=== PATIENT | male | born 1955 | race Caucasian/White ===

== ENCOUNTER 2022-03-15 14:46 | Outpatient (CLI) | payer OTHER, SELFPAY ==
[2022-03-15 09:34] LABS: Albumin* 4.3 g/dL (3.3-5.0); Chloride* 103 mmol/L (96-114)
[2022-03-15 09:35] LABS: Potassium* 3.7 mmol/L (3.6-5.1); Sodium* 139 mmol/L (135-149)
[2022-03-15 09:37] LABS: Alanine Aminotransferase* 41 U/L (4-50); Alkaline Phosphatase* 50 U/L (40-150); Aspartate Amino Transferase* 43 U/L (12-35); Bilirubin Total* 1.4 mg/dL (0.1-1.5); Blood Urea Nitrogen* 21 mg/dL (7-30); Carbon Dioxide* 27 mmol/L (20-32); Cholesterol* 167 mg/dL (90-199); Estimated Glomerular Filt Rate 82 ml/min; Glucose* 110 mg/dL (60-115); Total Protein* 6.6 g/dL (6.0-8.3); Triglycerides* 111 mg/dL (40-149)
[2022-03-15 09:38] LABS: HDL Cholesterol* 48 mg/dL (>=40); LDL Cholesterol Calculated 97 mg/dL (<100)
[2022-03-21 12:41] LABS: PSA Screen* 1.66 ng/mL (0.10-4.00)
== END 2022-03-15 14:47 | disposition home or self-care (01) ==
PROVIDERS: PCP Family Medicine; Visit Provider Family Medicine
DX: Z00.00 Encounter for general adult medical examination without abnormal findings (principal); E78.5 Hyperlipidemia, unspecified; E03.9 Hypothyroidism, unspecified; Z12.5 Encounter for screening for malignant neoplasm of prostate
CPT/HCPCS: 80053; 80061; 84153; 84443

== ENCOUNTER 2022-06-20 16:08 | Outpatient (CLI) | payer OTHER, SELFPAY ==
[2022-06-20 09:10] LABS: Albumin* 4.4 g/dL (3.3-5.0)
[2022-06-20 09:13] LABS: Aspartate Amino Transferase* 37 U/L (12-35); Bilirubin Direct* 0.1 mg/dL (0.0-0.5); Bilirubin Total* 1.1 mg/dL (0.1-1.5); Cholesterol* 126 mg/dL (90-199); HDL Cholesterol* 45 mg/dL (>=40); LDL Cholesterol Calculated 62 mg/dL (<100); Total Protein* 6.4 g/dL (6.0-8.3); Triglycerides* 94 mg/dL (40-149)
[2022-06-20 09:14] LABS: Alkaline Phosphatase* 45 U/L (40-150)
[2022-06-20 09:15] LABS: Alanine Aminotransferase* 40 U/L (4-50)
== END 2022-06-20 16:09 | disposition home or self-care (01) ==
PROVIDERS: PCP Family Medicine; Visit Provider Family Medicine
DX: E78.00 Pure hypercholesterolemia, unspecified (principal)
CPT/HCPCS: 80061; 80076

== ENCOUNTER 2022-07-13 14:07 | Outpatient (CLI) | payer OTHER, SELFPAY ==
[2022-07-13 22:17] LABS: Chloride* 103 mmol/L (96-114)
[2022-07-13 22:18] LABS: Potassium* 4.2 mmol/L (3.6-5.1); Sodium* 139 mmol/L (135-149)
[2022-07-13 22:20] LABS: Estimated Glomerular Filt Rate 82 ml/min
[2022-07-13 22:21] LABS: Blood Urea Nitrogen* 18 mg/dL (7-30); Calcium* 9.3 mg/dL (8.4-10.6); Carbon Dioxide* 27 mmol/L (20-32); Glucose* 98 mg/dL (60-115)
[2022-07-13 22:31] LABS: Vitamin D 25 Hydroxy* 39 ng/mL (30-80)
[2022-07-13 23:04] LABS: Vitamin B12* 302 pg/mL (243-894)
[2022-07-16 04:58] LABS: Folate, Serum 13.6 ng/mL (>=5.9)
== END 2022-07-13 14:08 | disposition home or self-care (01) ==
PROVIDERS: PCP Family Medicine; Visit Provider Family Medicine
DX: Z00.00 Encounter for general adult medical examination without abnormal findings (principal); E03.9 Hypothyroidism, unspecified; E78.00 Pure hypercholesterolemia, unspecified; I10 Essential (primary) hypertension; G62.9 Polyneuropathy, unspecified; M10.9 Gout, unspecified
CPT/HCPCS: 80048; 82306; 82607; 82746; 84443

== ENCOUNTER 2022-07-24 07:07 | Outpatient (CLI) | payer OTHER, SELFPAY ==
--- NOTE | 2022-07-24 08:00 | CRLHL7_ITS ---
For Patients: As a result of the Century Cures Act, medical imaging exams and procedure reports are released immediately into your electronic medical record. You may view this report before your referring provider. If you have questions, please contact your health care provider. Indication: Renal mass follow-up Technique: Postcontrast CT abdomen and pelvis. 99 cc Isovue 370 intravenous contrast. Please note that all CT scans at this facility use dose modulation, iterative reconstruction, and/or weight-based dosing when appropriate to reduce radiation dose to as low as reasonably achievable. Comparison: 10/06/2021 Findings: Lung bases are clear. Minimal atelectasis within the lingula inferiorly. No intrahepatic mass. Fatty infiltration of the liver. The spleen is normal. Normal gallbladder. No calcified gallstones. No biliary obstruction. The pancreas is within normal limits. Normal adrenal glands. Subcentimeter cyst at the posterior aspect of the left kidney superior pole. Subcentimeter cyst at the anterior left kidney upper pole. 15 millimeter exophytic low-density structure arising from the lower pole of the left kidney. Nonobstructing stone within the right kidney is unchanged measuring 3 millimeters. No hydronephrosis. Few scattered subcentimeter mesenteric lymph nodes are present, unchanged, representing mild incidental mesenteric panniculitis. Chronic sigmoid diverticulosis. No acute diverticulitis. Prostate calcifications are present. No bowel obstruction or free air. No free fluid. No abscess. The appendix and terminal ileum are normal. Postop changes of right inguinal hernia repair. No recurrent hernia. Degenerative facet arthropathy L4-5 with grade 1 degenerative spondylolisthesis of L4 on L5. Impression: Slight increased size of the exophytic low-density structure arising from the posterior aspect of the left kidney lower pole, now measuring 1.5 cm. Although this likely represents a normal Bosniak 2 cyst, further evaluation with MRI is suggested. Stable nonobstructing stone right kidney measuring 3 millimeters. Sub centimeters simple cysts elsewhere within the kidneys. Severe chronic sigmoid diverticulosis. Please note that all CT scans at this facility use dose modulation, iterative reconstruction, and/or weight-based dosing when appropriate to reduce radiation dose to as low as reasonably achievable. Dictated by Royce Frazier MD @ 07/24/2022 10:11:40 AM (Electronically Signed)
== END 2022-07-24 07:08 | disposition home or self-care (01) ==
LOC: CT 07:08
PROVIDERS: PCP Family Medicine; Visit Provider Family Medicine
DX: N28.89 Other specified disorders of kidney and ureter (principal); N28.1 Cyst of kidney, acquired; N20.0 Calculus of kidney; K57.30 Diverticulosis of large intestine without perforation or abscess without bleeding
CPT/HCPCS: 74177; Q9967

== ENCOUNTER 2022-07-28 07:30 | Outpatient (RCR) | payer OTHER, SELFPAY ==
--- NOTE | 2022-05-09 18:08 | OT.OPOE ---
OT Outpatient Ortho Eval OT Outpatient Ortho Eval Start: 05/09/22 17:49 Freq: Status: Active Protocol: Document 05/09/22 17:49 AMB (Rec: 05/09/22 18:04 AMB [id number]) E-signed By Zulma Lester, OTR/L, CLT, PERFORMANCE IMPROVEMENT SPECIALIST OT OP Ortho Eval Details Type Type Eval Insurance Information Insurance Information Comments [employer] Outpatient History/Precautions Current Condition/Medical Diagnosis Referring Provider Dr Alonso Treatment Diagnosis RUE medial epicondylitis Date of Onset Chronic Medical Conditions HTN,Hepatitis Other Conditions High cholesterol, gout, thyroid Medical/Functional History Medical History Reviewed Yes Prior Level of Function/Mobility Full, pain-free use of the RUE Social History Employment Status Retired Fitness Stays active, plays [employer] Oriented Mental Status No Concerns Ortho Subjective Subjective Subjective Pt is a very pleasant male presenting to OT with complaints of RUE medial elbow pain which has been going on for at least 3 months. Pt states he recalls that it started hurting one day after [employer], not sure if this had anything to do with it as he does not remember specific trauma. Pt was receiving PT for another condition at that time, PT gave him some stretches and UN glide and wrist strengthening, pt states he was faithful with these but did not feel they helped him. Pt states he has a hard time straightening his elbow in the morning as it is very stiff, difficult to lift suitcases and twist off lids. Pt does a lot of writing / typing, not sure if this aggravates it or not. Pain Assessment Pain Present Pain Present Pain Reported Location Right Elbow Intensity Moderate Goniometric Comments Goniometric Comments Goniometric Comments 05/09/22 Pt demonstrates full AROM of the RUE but has tightness at EROM of elbow extension also pain with full elbow extension with wrist extension. Hand Pinch/Warehouse Order Filler Strength Hand Right Warehouse Order Filler Strength Position 1 (lbs) 84 Warehouse Order Filler Strength Position 2 (lbs) 105 Lateral Pinch Strength (lbs) 20 Three Point Pinch (lbs) 16 Left Warehouse Order Filler Strength Position 1 (lbs) 82 Warehouse Order Filler Strength Position 2 (lbs) 95 Lateral Pinch Strength (lbs) 20 Three Point Pinch (lbs) 16 OT Objective Data Hand Hand Dominance Left Hand Function Pt states he is really ambidextrous but uses LUE for FMC. Observations/Posture Objective Observations Pt has slightly rounded shoulders / FWD head posture but likely non contributory to condition. Additional Information Objective Additional Information 05/09/22 Pt is very ttp over the RUE medial epicondyle, also has pain with resisted wrist flexion and resisted pronation OT Problems Problems Problems Decreased Strength,Decreased Range of Motion,Lifting, Gripping Other Problems Writing,Opening Containers, Computer Patient Potential Good Assessment Assessment Assessment Pt presents to OT with complaints of pain and weakness in the RUE which align with ss of RUE medial epicondylitis. Pt will benefit from skilled OT services to address pain and weakness in order to restore full, pain- free use of RUE with all ADLs and IADLs. Occupational Therapy Treatment Plan - OP Potential Rehabilitation Potential Good Set Goals Goals Set with Patient Yes Goals Goals 1. Pt will be independent and compliant with HEP in order to maximize positive outcomes and restore full, pain-free use of the RUE. 3 weeks. 2. Pt will demonstrate increased reed worker strength in the RUE to at least 90# in position 1 and 110# in position 2 indicating healing of the insertion point of the flexor tendon. 6 weeks. 3. Pt will no longer experience pain and stiffness in the RUE elbow upon waking in the morning indicating a resolution of inflammation. 8 weeks. Progress set Treatment Plan Treatment Plan Evaluation,Edema Control, Iontophoresis,Joint Mobilization,Manual Therapy, Ultrasound,Therapeutic Exercise,Therapeutic Activities,Self-Care/Home Management,Education Expected Frequency 1-2x Week Expected Duration 8-10 Weeks Certification Certification I Certify That: Therapy Services Provided, Therapy Plan Established, Therapy Plan Reviewed Recertification Information Recertification Information Initial Certification Date 05/09/22 Recertification Due Date 08/07/22 Reasons to Continue Skilled Therapy Pt is initiated OT to address RUE medial epicondylitis. Rehabilitation Potential Good Continued Plan of Care and Interventions See above Provider Signature Shows Agreement With POC & Medical Necessity Physician Comment/Change Comment or Changes Physician NPI Number #
== END 2022-07-31 15:31 | disposition home or self-care (01) ==
PROVIDERS: PCP Family Medicine; Visit Provider Family Medicine
DX: R10.9 Unspecified abdominal pain (principal); M25.521 Pain in right elbow; Z51.89 Encounter for other specified aftercare
CPT/HCPCS: 97033; 97035; 97110; 97140

== ENCOUNTER 2022-08-02 07:02 | Outpatient (CLI) | payer OTHER, SELFPAY ==
--- NOTE | 2022-08-02 07:15 | CRLHL7_ITS ---
For Patients: As a result of the Century Cures Act, medical imaging exams and procedure reports are released immediately into your electronic medical record. You may view this report before your referring provider. If you have questions, please contact your health care provider. Indication: Enlarging renal lesion on prior imaging study. Comparison: CT abdomen and pelvis was 2022, 10/06/2021 Technique: MRI of the abdomen was performed with the following sequences: axial and coronal T2 weighted, axial T2 fat saturated, axial diffusion, axial T1 in and out of phase, axial and coronal 3D T1 weighted before and after intravenous contrast administration. Contrast: 50 mL Dotarem Findings: Kidneys: Enhance symmetrically without hydronephrosis. 1.5 cm exophytic lesion arising from the left lower pole with increased T1 hyperintensity does not demonstrate significant enhancement on post-contrast imaging was consistent with hemorrhagic/proteinaceous cyst (Bosniak class II). Additional benign-appearing small cysts are noted in both kidneys. Liver: Diffuse signal loss on opposed phase imaging consistent with fatty infiltration. No suspicious enhancing lesions. Patent hepatic vessels. Gallbladder: Unremarkable. Other abdominal organs: Spleen, pancreas, and adrenal glands without focal pathology. Bone marrow signal:Unremarkable. Other findings: No lymphadenopathy or ascites. Impression: 1. 1.5 cm exophytic reason arising from the lower pole of the left kidney with imaging features most consistent with hemorrhagic/proteinaceous cyst (Bosniak class II). No suspicious enhancing renal lesions. Dictated by Mello Acevedo MD @ 08/05/2022 10:22:10 AM (Electronically Signed)
== END 2022-08-02 07:03 | disposition home or self-care (01) ==
LOC: MRI 07:03
PROVIDERS: PCP Family Medicine; Visit Provider Family Medicine
DX: N28.89 Other specified disorders of kidney and ureter (principal)
CPT/HCPCS: 74183; A9575

== ENCOUNTER 2022-10-23 12:49 | Outpatient (CLI) | payer OTHER, SELFPAY ==
--- NOTE | 2022-10-23 13:00 | CRLHL7_ITS ---
For Patients: As a result of the Cures Act, medical imaging exams and procedure reports are released immediately into your electronic medical record. You may view this report before your referring provider. If you have questions, please contact your health care provider. INDICATION: Foot numbness. TECHNIQUE: Sagittal and axial T1, sagittal and axial T2 and sagittal STIR images are obtained. COMPARISON: Lumbar spine MRI dated 11/08/2021. FINDINGS: Grade 1 degenerative spondylolisthesis at the L4-L5 level is unchanged. Multilevel spondylosis. No acute compression fractures. No paraspinal or epidural mass or abnormal fluid collection. The conus medullaris appears normal in morphology and signal intensity and terminates at the upper L2 level. Small Schmorl`s node endplate changes at T12-L1 and L1-2. No posterior or lateral disc herniation or stenosis. At L2-3 degenerative disc desiccation mild annular bulge no stenosis of the spinal canal or neural foramen. At L3-4 degenerative disc desiccation mild annular bulge mild bilateral facet arthropathy. No stenosis of the spinal canal and mild to moderate right neural foraminal narrowing. At L4-5 grade 1 degenerative spondylolisthesis. There is mild circumferential annular bulge. There is advanced bilateral facet arthropathy. A small right-sided synovial cyst is again noted. There is associated mild central canal stenosis there is asymmetric right lateral recess stenosis with some impingement of the traversing right L5 nerve root in the lateral recess. There is moderate right-side and mild left-sided neural foraminal narrowing. Probable impingement of the exiting right L4 nerve root. At L5-S1 minor annular bulge without focal herniation or stenosis of the spinal canal or neural foramen. New mild degenerative changes of the upper sacroiliac joints. IMPRESSION: 1. No significant interval changes comparing to lumbar MRI dated 11/08/2021. 2. At L4-5 grade 1 degenerative anterolisthesis. Mild central stenosis. Right lateral recess stenosis and asymmetric right foraminal narrowing. Some impingement of the traversing right L5 and exiting right L4 nerve root, similar to previous. 3. At L3-4 mild annular bulging and right greater than left neural foraminal narrowing. 4. No compression fracture nor high-grade central spinal canal stenosis at any lumbar level. Dictated by Nitish Jernigan MD @ 10/23/2022 2:46:25 PM (Electronically Signed)
== END 2022-10-23 12:50 | disposition home or self-care (01) ==
PROVIDERS: PCP Family Medicine; Visit Provider Family Medicine
DX: R20.0 Anesthesia of skin (principal); M51.26 Other intervertebral disc displacement, lumbar region; M48.061 Spinal stenosis, lumbar region without neurogenic claudication
CPT/HCPCS: 72148

== ENCOUNTER 2023-02-08 07:03 | Outpatient (CLI) | payer OTHER, SELFPAY ==
--- NOTE | 2023-02-08 07:15 | CRLHL7_ITS ---
For Patients: As a result of the Cures Act, medical imaging exams and procedure reports are released immediately into your electronic medical record. You may view this report before your referring provider. If you have questions, please contact your health care provider. INDICATION: Followup exophytic mass. COMPARISON: 08/02/2022 MRI, and CT dated 07/24/2022, as well as 12/06/2021. TECHNIQUE: Multisequence, multiphasic MRI of the abdomen, renal mass protocol. 15 cc of Dotarem administered intravenously. FINDINGS: Slight increase in the proteinaceous/hemorrhagic cyst in the lower pole of the left kidney measuring 18 mm, compared with 14 mm on the previous. No definitive enhancement as mentioned on the previous. No restricted diffusion. No significant fatty content. The kidneys enhance symmetrically without hydronephrosis. Atherosclerotic changes within the abdominal aorta without abdominal aortic aneurysm. The liver, spleen, pancreas and gallbladder appear unremarkable. No intra or extrahepatic biliary ductal dilatation. No pancreatic ductal dilatation. Visualized bowel is normal in caliber. Bone marrow signal appears normal. No pleural effusion. No ascites. Colonic diverticulosis. IMPRESSION: 1. Slight increase in a small hemorrhagic cyst in the lower pole of the left kidney. 2. Colonic diverticulosis. Dictated by Akash Christy MD @ 02/09/2023 8:16:19 AM (Electronically Signed)
== END 2023-02-08 07:04 | disposition home or self-care (01) ==
LOC: MRI 07:04
PROVIDERS: PCP Family Medicine; Visit Provider Family Medicine
DX: N28.89 Other specified disorders of kidney and ureter (principal); N28.1 Cyst of kidney, acquired; K57.30 Diverticulosis of large intestine without perforation or abscess without bleeding
CPT/HCPCS: 74183; A9575

== ENCOUNTER 2023-03-26 08:16 | Outpatient (CLI) | payer OTHER, SELFPAY | END 2023-03-26 08:17 | disposition home or self-care (01) | LOC: NFLDREF 03-28 12:41 | PROVIDERS: PCP Family Medicine; Referring Provider Family Medicine; Visit Provider Family Medicine | DX: Z00.00 Encounter for general adult medical examination without abnormal findings (principal); E78.00 Pure hypercholesterolemia, unspecified; I10 Essential (primary) hypertension; E03.9 Hypothyroidism, unspecified; G62.9 Polyneuropathy, unspecified; Z12.5 Encounter for screening for malignant neoplasm of prostate | CPT/HCPCS: 80053; 80061; 84153 ==

== ENCOUNTER 2023-06-18 10:38 | Outpatient (REF) | payer OTHER, SELFPAY ==
[2023-06-18 11:16] LABS: Cholesterol* 115 mg/dL (90-199)
[2023-06-18 11:17] LABS: HDL Cholesterol* 45 mg/dL (>=40); LDL Cholesterol Calculated 55 mg/dL (<100); Triglycerides* 74 mg/dL (40-149)
== END 2023-06-18 10:39 | disposition home or self-care (01) ==
LOC: NPINS 10:38
PROVIDERS: PCP Family Medicine
DX: E78.5 Hyperlipidemia, unspecified (principal)
CPT/HCPCS: 80061

== ENCOUNTER 2023-08-01 07:35 | Outpatient (CLI) | payer OTHER, SELFPAY ==
--- OUTSIDE RECORDS SUMMARY | 2023-08-03 07:46 | XMS_ITS | Encounter Summary ---
Author Name Unknown Organization [facility] Address [address] [place] [address] Care Team Providers Care Packing Line Operator Name Role Phone Unavailable Primary Care Provider Unavailabl e Reason for Referral * Outpatient (Routine) - Authorized Specialty Diagnoses / Procedures Referred By Prosper gonzalez Referred To Contact Sleep Medicine Merly Plummer M.D., M.P.H. [address] [phone] [facility] Region Referral ID Status Reason Start Date Expiration Date V isits Requested Visits Authorized [id number] Authorized 03/26/2023 03/25/2026 1 1 Reason for Visit * Reason Comments Cpap Follow-up * Outpatient (Routine) - Closed Specialty Diagnoses / Procedures Referred By Prosper gonzalez Referred To Contact Sleep Merly Felder M.D., M.P.H. [address], [place] [address] [facility] Region Referral ID Status Reason Start Date Expiration Date Visits Re quested Visits Authorized [id number] Closed 04/05/2022 04/04/2025 1 1 Encounter Details Date Type Department Care Team (Late st Contact Info) Description 03/26/2023 3:00 PM CDT Office Visit Department of Sleep Medicine in [place], [place] [address] [place] [phone] Merly Plummer M.D., M.P.H. [address] [place] [phone] Apnea Sleep Obstructive Social History Tobacco Use Types Packs/Day Years Used Date Smoking Tobacco: Never Smokeless Tobacco: Never Tobacco Cessation:Counseling Given: Not Answered Overall Financial Resource Strain (CARDIA) Answe r Date Recorded How hard is it for you to pa y for the very basics like food, housing, medical care, and heating? Not hard at all 03/22/2023 Exercise Vital Sign Answer Date Recorde d On average, how many days pe r week do you engage in moderate to strenuous exercise (like a brisk walk)? 3 days 03/22/2023 On average, how many minutes do you engage in exercise at this level? 100 min 03/22/2023 Hunger Vital Sign Answer Date Recorded Within the past 12 months, y ou worried that your food would run out before you got the money to buy more. Never true 03/22/20 Within the past 12 months, t he food you bought just didn't last and you didn't have money to get more. Never true 03/22/2023 PRAPARE - Transportation Answer Date Re corded In the past 12 months, has l ack of transportation kept you from medical appointments or from getting medications? No 03/09 In the past 12 months, has l ack of transportation kept you from meetings, work, or from getting things needed for daily living? No 03/22/2023 Nutrition Answer Date Recorded Nutrition: EVOO Fat Source Unknown 03/22 On average, how many serving s of fruits and vegetables do you eat per day (serving size is equal to 1 cup or approximately the size of a tennis ball)? 3-5 03/22/2023 Dental Answer Date Recorded Dental: Regular Dentist Yes 03/22/20 Employment Answer Date Recorded Employment status Retired 03/22/2023 Housing Stability Answer Date Recorded What is your living situation today? I have a [facility] place to live 03/22/2023 Sex and Gender Information Value Date Recorded Sex Assigned at Male 03/22/2023 7:31 AM CDT Gender Identity Male 03/22/2023 7:31 AM CDT Sexual Orientation Lesbian or Alexander 03/22/2023 7: 31 AM CDT documented as of this encounter Last Filed Vital Signs Vital Sign Reading Time Taken Comments Blood Pressure 149/82 03/26/2023 2:59 PM CDT Pulse 65 03/26/2023 2:59 PM CDT Temperature - - Respiratory Rate - - Oxygen Saturation - - Inhaled Oxygen Concentration - - Weight 93.4 kg (205 lb 14.6 oz) 03/26/2023 2:55 PM CDT Height - - Body Mass Index 29.64 03/27/2019 2:28 PM CDT documented in this encounter Progress Notes * Merly Plummer M.D., M.P.H. - 03/26/2023 3:00 PM CDT Sleep Clinic SUBJECTIVE HISTORY OF PRESENT ILLNESS Patient is here to four been a posterior child for CPAP therapy. At today's visit, proximally year after his previous visit, he tells me that for the past two months he has had dry mouth about two days out of seven. He does note that his head gear was relatively old and perhaps stretched out. He isreplaced the mask cushion more frequently. He had two nights when it pressure was quite high causing dry mouth and he found the pressure change to 18 for two days but it has been reset back to 10 it is unclear how that happened but that was about the 3rd week in February. Today's visit the compliancedownload confirms that his pressure set to 10 cm water pressure with EPR of three. His median leak is 0.7 last year was 0.0 maximum leak is 40.6 and previously it was 26.4. I think he has some leak through his mouth and I have suggested that if he gets new head gear in the dry mouth continues that I would probably try a chin strap and if that fails then he might have totry a mask that covers his nose and mouth. He denies skin breakdown. [place] Sleepiness Score: Four OBJECTIVE PHYSICAL EXAMINATION BP 149/82 (BP Location: Right arm, Patient Position: Sitting, Cuff Size: Large) Pulse 65 Wt 93.4 kg BMI 29.64 kg/m?? HEENT Mallampati score: 4 Macroglossia: + Over jet: - Retrognathia: - Lungs: Clear Neurological Exam Cognition: Alert and oriented x 4. Cranial Nerves: II-XII intact and symmetric. Motor: Full strength throughout the upper and lower extremities bilaterally both proximally and distally. Normal tone. No pronator drift. No tremor. Reflexes: Normal and symmetric at the biceps, triceps, brachioradialis, knees, and ankles. Sensory: Normal sensation to touch. Cerebellar: ARMs normal. Gait: Normal. ASSESSMENT / PLAN #1 Apnea Sleep Obstructive Patient is sleep apnea still very well treated with the leak is a little bit higher and he has had some episodes of xerostomia. As noted above I have recommended that he consider getting do head gearand see if that will help with some of the leak. If he continues to have a dry mouth episodically might be worth trying a chinstrap if that fails then I would probably consider changing to a fullfacemask. How his pressure was change from 10-18 may never be known. It is however confirmed on his compliance download about the 25 of February. - DME CPAP; DME Order, ERX DME Other orders - Sleep Medicine office visit (clinic) - Sleep Medicine office visit (clinic); Future; Expected date: 03/26/2024 I personally spent 30 minutes in care of the patient today. Time includes both non face to face andface to face patient care. Patient was counseled regarding weight as a risk factor for sleep disordered breathing. The patientwas counseled on driving while drowsy. Merly Plummer M.D., M.P.H. documented in this encounter Plan of Treatment Scheduled Referrals Name Type Priority Associated Diagnoses Orde r Schedule Sleep Medicine office visit (clinic) Outpatient Referral Routine Expected: 03/26/2024 (Approximate), Expires: 06/25/2024 documented as of this encounter Visit Diagnoses Diagnosis Apnea Sleep Obstructive documented in this encounter
--- OUTSIDE RECORDS SUMMARY | 2023-08-03 07:46 | XMS_ITS ---
Author Name Unknown Organization [facility] Address [address] [place] [address] Care Team Providers Care Lending Activities Supervisor Name Role Phone Unavailable Unavailable Unavailable Surgery Details Not on file Complications Check Surgery Details section. Procedure Estimated Blood Loss Check Surgery Details section. Procedure Findings Check Surgery Details section. Procedure Specimens Taken Check Surgery Details section.
--- OUTSIDE RECORDS SUMMARY | 2023-08-03 07:46 | XMS_ITS | Referral Summary ---
Author Name Unknown Organization [facility] Address [address] [place] [address] Care Team Providers Care Websphere Developer Name Role Phone Unavailable Primary Care Provider Unavailabl e Source Comments Patient records contain information from all sites at [facility]. For routine questions regarding patient records, call [phone] during business hours, M-F 8:00 AM - 5:00 PM Central Time. Record requests for emergency care only can be directed to [phone] at any time.[facility] Allergies No known active allergies Medications Medication Sig Dispensed Refills Start Date End Date Status allopurinol (ZYLOPRIM) 100 mg tablet Take 100 mg by mouth daily. 0 11/10/2017 Active amLODIPine (NORVASC) 5 mg tablet Take 5 mg by mouth daily. 0 Active levothyroxine (SYNTHROID, LEVOTHROID) 125 mcg tablet Take 0.125 tablets by mouth daily. 2 03/11/[address] tablet Take 81 mg by mouth daily. 0 Active cholecalciferol (VITAMIN D3) 50 mcg (2,000 Unit) tablet Take 2,000 Units by mouth daily. 0 Active carvediloL (COREG) 12.5 mg tablet Take 12.5 mg by mouth 2 (two) times a day. 0 03/08/2022 Active losartan (COZAAR) 100 mg tablet Take 100 mg by mouth daily. 0 03/08/2022 Active simvastatin (ZOCOR) 20 mg tablet Take 20 mg by mouth daily. 0 03/21/2022 Active MECOBALAMIN, VITAMIN B12, ORAL Take 1,000 mcg by mouth daily. 0 10/31/2022 Active DME CPAPIndications:Apnea Sleep Obstructive DME Order 1 each 11 03/26/2023 Active Active Problems Problem Noted Date Diagnosed Date Apnea Sleep Obstructive 04/05/2022 Social History Tobacco Use Types Packs/Day Years [...] your living situation today? I have a [facility] place to live 03/22/2023 Sex and Gender Information Value Date Recorded Sex Assigned at Male 03/22/2023 7:31 AM CDT Gender Identity Male 03/22/2023 7:31 AM CDT Sexual Orientation Lesbian or Alexander 03/22/2023 7: 31 AM CDT Last Filed Vital Signs Vital Sign Reading Time Taken Comments Blood Pressure 149/82 03/26/2023 2:59 PM CDT Pulse 65 03/26/2023 2:59 PM CDT Temperature - - Respiratory Rate - - Oxygen Saturation 96% 03/31/2020 8:19 AM CDT room air Inhaled Oxygen Concentration - - Weight 93.4 kg (205 lb 14.6 oz) 03/26/2023 2:55 PM CDT Height 177.5 cm (5' 9.88) 03/27/2019 2:28 PM CD T Body Mass Index 29.64 03/27/2019 2:28 PM CDT Plan of Treatment Not on file [address] [facility] [address] [place] [phone]
--- OUTSIDE RECORDS SUMMARY | 2023-08-03 07:46 | XMS_ITS | Clinical Summary ---
Author Name Unknown Organization [facility] Address [place], [place] [address] Care Team Providers Care Sifting Operator Name Role Phone Brendan Alonso MD Primary Care Provider [phone] Allergies No known active allergies Medications Medication Sig Dispensed Refills Start Date End Date Status allopurinoL (ZYLOPRIM) 100 mg tablet Take 100 mg by mouth once daily. 0 07/23/2020 Active aspirin (ECOTRIN) 81 mg enteric coated tablet Daily 0 Active cholecalciferol, Vitamin D3, 2,000 unit tablet Take 2,000 units by mouth. 0 Active levothyroxine (SYNTHROID) 125 mcg tablet Take 125 mcg by mouth once daily. 0 07/23/2020 Active losartan (COZAAR) 100 mg tabletIndications:Esse ntial hypertension Take 1 Tablet (100 mg) by mouth once daily. 90 Tablet 3 03/01/2023 Active amLODIPine (NORVASC) 10 mg tabletIndications:Esse ntial hypertension Take 0.5 Tablets (5 mg) by mouth once daily. 90 Tablet 3 03/05/2023 Active carvediloL (Coreg) 12.5 mg tabletIndications:V-ta ch (HC),Essential hypertension Take 1 Tablet (12.5 mg) by mouth two times daily with meals. 180 Tablet 3 03/13/2023 Active rosuvastatin (Crestor) 20 mg tabletIndications:Hype rlipidemia, unspecified hyperlipidemia type Take 1 Tablet (20 mg) by mouth at bedtime. 90 Tablet 2 03/28/2023 Active Active Problems No known active problems Encounters Date Type Department Care Team Description 06/26/2023 Orders Only [facility] Staff, Other Clinical 1 scan: (1-Ord) [facility] 06/26/2023 Telephone [facility] [place] [address] [place] [address] Barrett Hampton MD Follow Up (FLP) from Last 3 Months Social History Tobacco Use Types Packs/Day Years Used Date Smoking Tobacco: Never Smokeless Tobacco: Never Tobacco Cessation:Counseling Given: Yes Alcohol Use Standard Drinks/Week Comments Yes 0 (1 standard drink = 0.6 oz pur e alcohol) 2 drinks/month Social Connections Answer Date Recorded Frequency of Communication with Friends and Fami ly Not on file 07/09/2021 Financial Resource Strain Answer Date R ecorded Difficulty of Paying Living Expenses Not on file 07/09/2021 Difficulty of Paying Living Expenses Not on file 07/09/2021 Sex and Gender Information Value Date Recorded Sex Assigned at Male 03/04/2023 10:05 PM CDT Gender Identity Male 03/04/2023 10:05 PM CDT Sexual Orientation Lesbian or Alexander 03/04/2023 10 :05 PM CDT Obstetrics History Last Filed Vital Signs Vital Sign Reading Time Taken Comments Blood Pressure 120/60 03/13/2023 9:11 AM CDT Pulse 82 03/13/2023 9:11 AM CDT Temperature 36.8 ??C (98.2 ??F) 12/16/2021 1 1:01 AM CDT Respiratory Rate 18 07/26/2020 9:47 AM CLINICAL DIETICIAN Oxygen Saturation 95% 03/05/2023 1:56 PM CDT Inhaled Oxygen Concentration - - Weight 91.2 kg (201 lb) 03/05/2023 1:56 PM CDT H OME RECORDED Height 177.8 cm (5' 10) 03/05/2023 1:56 PM CDT Body Mass Index 28.84 03/05/2023 1:56 PM CDT Plan of Treatment Upcoming Encounters Date Type Department Care Team (Late st Contact Info) Description 03/13/2024 7:30 AM CDT Ancillary Procedure [facility] [address] [place] [address] 03/20/2024 8:45 AM CDT Office Visit [facility] [address] [facility] [place] [address] Claudia Stevens MD [address] [place] [address] Health Maintenance Due Date Last Done Comments Tdap 1965 Depression screening for age 12+ 1966 Hepatitis C screening for ag e 18-79 1972 Tetanus booster 1974 Colonoscopy through age 75 1999 Zoster (shingles) series for age 50+ (1 of 2) 2004 Pneumococcal series for age 65+ (1 of 1 - PCV) 2019 COVID-19 vaccine series (2022- season) 2023 10/27/2022, 10/19/2021, 04/29/2021, Additional history exists Influenza for age 65+ 03/09/2023 BMI (ht and wt on same day) for age 18+ 03/05/2024 03/05/2023, 08/05/2021 Lipids for age 45-75 03/05/2028 03/05/2023 Procedures Procedure Name Priority Date/Time Associated Diagnosis Comments SCAN CORRESP-LABORATORY RESULTS 06/26/2023 4:08 PM CLINICAL DIETICIAN from Last 3 Months Results * SCAN CORRESP-LABORATORY RESULTS (06/26/2023 4:08 PM CLINICAL DIETICIAN) Narrative 06/26/2023 4:08 PM CLINICAL DIETICIAN Ordered by an unspecified provider. Other Clinical Staff OTHER from Last 3 Months Care Teams Sifting Operator Relationship Specialty Start Date End Date Brendan Alonso MD [address], [place] [address] PCP - General Family Practice 06/21/20
--- OUTSIDE RECORDS SUMMARY | 2023-08-03 07:46 | XMS_ITS | Clinical Summary ---
Author Name Unknown Organization [facility] Address [address] [place] [address] Care Team Providers Care Range Scientist Name Role Phone Unavailable Primary Care Provider Unavailabl e Source Comments Patient records contain information from all sites at [facility]. For routine questions regarding patient records, call [phone] during business hours, M-F 8:00 AM - 5:00 PM Central Time. Record requests for emergency care only can be directed to [phone] at any time.[facility] Allergies No known active allergies Medications [...] your living situation today? I have a [facility] place to live 03/22/2023 Sex and [...] 03/27/2019 2:28 PM CDT Plan of Treatment Health Maintenance Due Date Last Done Comments CT Colonography 1954 Cologuard 1954 Colonoscopy 1954 Colorectal Cancer Screening 1954 FIT 1954 Hepatitis C Screening 1954 Thyroid Stimulating Hormone (TSH) test for thyroid function 08/05/2022 08/05/2021 Office Visit for Blood Press ure Check / Re-check 06/25/2023 03/26/2023 Depression Screening (Annual PHQ-2) 07/09/2023 Fall Risk Screen (Annual) 07/09/2023 Creatinine Level (Kidney Fun ction Test) 03/05/2024 03/05/2023, 02/20/2022, 01/20/2022, Additional history exists Potassium Level 03/05/2024 03/05/2023, 02/06, 01/20/2022, Additional history exists Sodium Level 03/05/2024 03/05/2023, 02/06, 01/20/2022, Additional history exists Fasting Glucose for Diabetes Screening 03/05/2026 03/05/2023, 02/20/2022, 01/20/2022, Additional history exists DTaP,Tdap,and Td Vaccines (2 - Td or Tdap) 03/13/2027 03/13/2017 Pneumococcal vaccine (65+ years) Completed 03/24/20, 02/06/2020 Zoster Vaccines Completed 08/25/2022, 05/18/2022 COVID-19 Vaccine Completed 04/05/2023, , 03/29/2022, Additional history exists Influenza Vaccine Completed 04/05/2023, , 04/29/2021, Additional history exists [address] [facility] [address] [place] [id number]
== END 2023-08-01 07:36 | disposition home or self-care (01) ==
LOC: NFLDREF 08-03 07:42
PROVIDERS: PCP Family Medicine; Referring Provider Family Medicine; Visit Provider Family Medicine
DX: E03.9 Hypothyroidism, unspecified (principal); E78.00 Pure hypercholesterolemia, unspecified; G47.30 Sleep apnea, unspecified; G62.9 Polyneuropathy, unspecified; I10 Essential (primary) hypertension; Z12.5 Encounter for screening for malignant neoplasm of prostate
CPT/HCPCS: 80053; 80061; 82306; 82607; 84443; G0103

== ENCOUNTER 2024-01-25 08:00 | Outpatient (RCR) | payer OTHER, SELFPAY ==
--- NOTE | 2023-11-15 10:27 | PT.OPEX ---
PT [facility] Outpatient Eval PT [facility] Outpatient Eval Start: 11/15/23 08:05 Freq: Status: Active Protocol: Document 11/15/23 08:06 CRP (Rec: 11/15/23 10:25 CRP [id number]) E-signed By Juan Bernal PT Physical Therapy Outpatient Evaluation Insurance Information Recert Due Date 02/13/24 Insurance Information/Comments [employer] Medical Diagnosis Lumbar spine DJD Abdominal pain Referring MD Dr Alonso Subjective Subjective 12 years ago diagnosed with diverticulitis. Had L lower abdominal pain. Over the years would have times of severe abdominal pain that would not allow him to use that ab muscles. More recently he had an episode of ab pain and had CT scan. Showed no sign of diverticulitis. Had follow up MRI that showed signs that the issue may be related to spine. Within the last week he may get some soreness of the L lower back. For about 3 months he has been trying to get back into wt lifting. Bad flares usually on last a few days. Usually there is at least pain with pushing on the spot or when lifting the L knee. Since October 17 flare he has not been doing his wt lifting. Pain also increases with lifting and did have a flare one time after playing pickle ball. Pain Comments 02/15 when most painful Current Work Status Retired Objective Other/Pertinent Objective Trunk ROM: Flex WNL, Ext mod dec with L low back pain. R SB min dec with stretch at L side, L SB min/mod dec. rotation R WNL, L mod dec Bilat hip ROM WNL MMT: myotomes WNL SLR negative bilat Prone UPA hypomob L1-3 on L Functional Test Performed & Score Oswestry 24 Assessment Assessment/Impression Pt presents to the clinic with long standing issues of L sided abdominal pain and more recently L low back pain. Pts pain does appear mechanical in nature with spine mobility dysfunction as a dominant factor. Skilled PT is necessary to incorporate ther ex, nm stephanie, manual therapy and pt education to decrease pain and improve functional mobility. Primary Functional Limitations Sitting lifting twisting playing pickle ball Strength training Plan of Care Rehabilitation Potential Excellent Physical Therapy Goals 1. Pt will be independent with HEP in 8 weeks. 2. Pt will sit as desired for driving or social events without c.o in 10 weeks. 3. Pt will return to strength training without c.o in 12 weeks. 4. Pt will play pickle ball without pain in 12 weeks. Coordination/Communication With Referral Source Treatment Plan/Direct Interventions Joint Mobilization,Manual Therapy,Neuromuscular Re-ed, Self-Care/Home Management, Therapeutic Activities, Therapeutic Exercises Frequency/Duration 1-2x/wk for 12 weeks Patient Will Be Discharged From Therapy Completion of LTG(s),Skills Plateau,Independent w/HEP, Independently Progressing Evaluation Billing Untimed Code Treatment Minutes 40 Complexity Moderate Certification Information Initial Certification Date 11/15/23 Ending Certification Date 02/13/24 Provider Signature Shows Agreement With POC & Medical Necessity Physician Signature & Date Requested Please Sign/Date Here Physician Comment/Change : Physician NPI Number #
== END 2024-05-24 23:59 | disposition home or self-care (01) ==
PROVIDERS: PCP Family Medicine; Visit Provider Family Medicine
DX: M47.9 Spondylosis, unspecified (principal); R10.9 Unspecified abdominal pain; Z51.89 Encounter for other specified aftercare
CPT/HCPCS: 97110; 97140; 97162

== ENCOUNTER 2024-05-15 07:43 | Outpatient (CLI) | payer OTHER, SELFPAY | END 2024-05-15 07:44 | disposition home or self-care (01) | LOC: NFLDREF 14:07 | PROVIDERS: PCP Family Medicine; Referring Provider Family Medicine; Visit Provider Family Medicine | DX: E03.9 Hypothyroidism, unspecified (principal); E78.00 Pure hypercholesterolemia, unspecified; I10 Essential (primary) hypertension; Z12.5 Encounter for screening for malignant neoplasm of prostate; Z11.59 Encounter for screening for other viral diseases | CPT/HCPCS: 80053; 80061; 84443; 86803; G0103 ==

== ENCOUNTER 2024-05-27 07:00 | Outpatient (CLI) | payer OTHER, SELFPAY ==
--- OUTSIDE RECORDS SUMMARY | 2024-05-27 07:03 | XMS_ITS ---
Author Organization [facility] Address [address] [place] [address] Care Team Providers Care Ore Washer Name Role Phone Unavailable Unavailable Unavailable Surgery Details Not on file Complications Check Surgery Details section. Procedure Estimated Blood Loss Check Surgery Details section. Procedure Findings Check Surgery Details section. Procedure Specimens Taken Check Surgery Details section.
--- OUTSIDE RECORDS SUMMARY | 2024-05-27 07:03 | XMS_ITS | Clinical Summary ---
Author Organization [facility] Address [place], [place] [address] Care Team Providers Care Bakery Worker Name Role Phone Brendan Alonso MD Primary Care Provider [phone] Allergies No known active allergies Medications Medication Sig Dispensed Refills Start Date End Date Status allopurinoL (ZYLOPRIM) 100 mg tablet Take 100 mg by mouth once daily. 07/23/2020 Active aspirin (ECOTRIN) 81 mg enteric coated tablet Daily Active cholecalciferol, Vitamin D3, 2,000 unit tablet Take 2,000 units by mouth. Active levothyroxine (SYNTHROID) 125 mcg tablet Take 125 mcg by mouth once daily. 07/23/2020 Active amLODIPine (NORVASC) 10 mg tabletIndications:Ess ential hypertension Take 0.5 Tablets (5 mg) by mouth once daily. 90 Tablet 3 03/05/2023 Active rosuvastatin (CRESTOR) 20 mg tabletIndications:Hyp erlipidemia, unspecified hyperlipidemia type Take 1 Tablet (20 mg) by mouth once daily with evening meal. Follow up with cardiology due in February 2024, call [phone] to schedule appt. 90 Tablet 3 11/21/2023 Active losartan (COZAAR) 100 mg tabletIndications:Ess ential hypertension TAKE 1 TABLET(100 MG) BY MOUTH EVERY DAY 90 Tablet 02/18/2024 Active carvediloL (COREG) 12.5 mg tabletIndications:V-t ach (HC),Essential hypertension TAKE 1 TABLET(12.5 MG) BY MOUTH TWICE DAILY WITH MEALS 180 Tablet 04/03/2024 Active Active Problems No known active problems Encounters Date Type Department Care Team Description 04/22/2024 11:30 AM CDT Office Visit [facility] [address] [place] [address] Mahesh Russo MD Follow Up (Coronary artery disease) 04/22/2024 Travel 04/17/2024 Travel 04/03/[address] [facility] [place] [place] [facility] [place] [address] [place] [address] Barrett Hampton MD Refill Request (Carvedilol) 03/20/2024 8:45 AM CDT Office Visit [facility] [address] [place] [address] Claudia Stevens MD Follow Up (Renal mass) 03/20/2024 Travel 03/13/2024 7:30 AM CDT Ancillary Procedure [facility] [address] [place] [address] 03/12/2024 Travel from Last 3 Months Social History Tobacco Use Types Packs/Day Years Used Date Smoking Tobacco: Never Smokeless Tobacco: Never Tobacco Cessation:Counseling Given: Yes Alcohol Use Standard Drinks/Week Comments Yes 0 (1 standard drink = 0.6 oz pur e alcohol) 2 drinks/month Financial Resource Strain Answer Date R ecorded [...] Sign Reading Time Taken Comments Blood Pressure 133/77 04/22/2024 11:34 AM CDT Pulse 51 04/22/2024 11:34 AM CDT Temperature 36.9 C (98.5 F) 11/29/2023 8:36 AM CDT Respiratory Rate 18 07/26/2020 9:47 AM ALLEY TENDER Oxygen Saturation 96% 04/22/2024 11: 34 AM CDT Inhaled Oxygen Concentration - - Weight 93.4 kg (205 lb 12.8 oz) 024 11:34 AM CDT Height 177.8 cm (5' 10) 03/05/2023 1:56 PM CDT Body Mass Index 29.53 03/05/2023 1:56 PM CDT Plan of Treatment Upcoming Encounters Date Type Department Care Team (Late st Contact Info) Description 03/12/2025 7:30 AM CDT Ancillary Procedure [facility] [address] [place] [address] 03/19/2025 8:30 AM CDT Office Visit [facility] [address] [place] [address] Claudia Stevens MD [address] [place] [address] Health Maintenance Due Date Last Done Comments Tdap 1965 Depression screening for age 12+ 1966 Hepatitis C screening for ag e 18-79 1972 Tetanus booster 1974 Colonoscopy through age 75 1999 Zoster (shingles) series for age 50+ (1 of 2) 2004 Pneumococcal series for age 65+ (1 of 1 - PCV) 2019 BMI (ht and wt on same day) for age 18+ 03/05/2024 03/05/2023, 08/05/2021 Influenza for age 65+ 03/09/2024 Lipids for age 45-75 03/05/2028 03/05/2023 COVID-19 vaccine series Completed 03/14/20 24, 04/05/2023, 10/27/2022, Additional history exists Procedures Procedure Name Priority Date/Time Associated Diagnosis Comments US RENAL AND BLADDER COMPLETE Routine 03/13/2024 8:14 AM CDT Renal mass LIPID PANEL Routine 03/05/2023 1:00 PM CDT Coronary artery disease, unspecified vessel or lesion type, unspecified whether angina present, unspecified whether [place] or transplanted heart from Last 3 Months or Most Recently Relevant to Health Maintenance Results * US RENAL AND BLADDER COMPLETE (03/13/2024 8:14 AM CDT) Anatomical Region Laterality Modality Abdomen, AORTA, KIDNEYS Ultrasou nd 03/13/2024 12:3 1 PM CDT Impressions 03/13/2024 12:31 PM CDT No significant interval change in the exophytic lesion arising from the lateral left kidney. Dictated by Royce Frazier MD @ 03/13/2024 12:31:24 PM (Electronically Signed) Narrative 03/13/2024 12:31 PM CDT For Patients: As a result of the Cures Act, medical imaging exams and procedure reports are released immediately into your electronic medical record. You may view this report before your referring provider. If you have questions, please contact your health care provider. CLINICAL HISTORY: Renal mass COMPARISON: Outside MRI 02/08/2023, MRI 08/02/2022, CT 07/24/22 TECHNIQUE: Orosco scale and color Doppler images were acquired of the kidneys and urinary bladder. FINDINGS: Exophytic hypoechoic structure arising from the lateral left kidney measures 15 x 13 x 15 millimeters, previously measuring between 14 and 18 millimeters. No internal blood flow. No hydronephrosis. The right kidney measures 12.0cm in length and the left kidney measures 11.5cm in length. The renal cortex appears of normal thickness. The urinary bladder appears normal. There is no evidence of bladder calculi or diverticula. Procedure Note Royce Frazier MD - 03/13/2024 For Patients: As a result of the Cures Act, medical imagingexams and procedure reports are released immediately into your electronicmedical record. You may view this report before your referring provider.If you have questions, please contact your health care provider. CLINICAL HISTORY: Renal mass COMPARISON: Outside MRI 02/08/2023, MRI 08/02/2022, CT 07/24/22 TECHNIQUE: Orosco scale and color Doppler images were acquired of the kidneys andurinary bladder. FINDINGS: Exophytic hypoechoic structure arising from the lateral left kidneymeasures 15 x 13 x 15 millimeters, previously measuring between 14 and 18millimeters. No internal blood flow. No hydronephrosis. The right kidneymeasures 12.0cm in length and the left kidney measures 11.5cm in length.The renal cortex appears of normal thickness. The urinary bladder appears normal. There is no evidence of bladdercalculi or diverticula. IMPRESSION: No significant interval change in the exophytic lesion arising from thelateral left kidney. Dictated by Royce Frazier MD @ 03/13/2024 12:31:24 PM (Electronically Signed) Claudia Stevens MD US * LIPID PANEL (03/05/2023 1:00 PM CDT) CHOLESTEROL,TOTAL 158 100 - 199 mg/dL 03/05/2023 1:43 PM CDT [facility] Comment: Cholesterol, Total Reference Ranges Desirable <200 mg/dL Borderline 200-239 mg/dL High >=240 mg/dL TRIGLYCERIDES 101 <150 mg/dL 03/05/2023 1:43 PM CDT [facility] HDL CHOLESTEROL 52 >40 mg/dL 1:43 PM CDT [facility] NON-HDL CHOLESTEROL 106 <145 mg/dl 03/05/2023 1:43 PM CDT [facility] CHOL/HDL RATIO 3.04 <4.50 03/05/2023 1:43 PM CDT [facility] LDL CHOLESTEROL 86 <=130 mg/dL 03/05/2023 1:43 PM CDT [facility] VLDL CHOLESTEROL 20 <=30 mg/dL 03/05/2023 1:43 PM CDT [facility] PROVIDER ORDERED STATUS RANDOM 03/05/2023 1:43 PM CDT [facility] Blood BLOOD SPECIMEN / Unknown Venipuncture / Unknown 03/05/2023 1:00 PM CDT 03/05/2023 1:06 PM CDT Barrett Hampton MD CHEMISTRY [facility] [address] [place] [address], [place] from Last 3 Months or Most Recently Relevant to Health Maintenance Care Teams Bakery Worker Relationship Specialty Start Date End Date Brendan Alonso MD [address] [place] [address] PCP - General Family Practice 06/21/20
--- OUTSIDE RECORDS SUMMARY | 2024-05-27 07:03 | XMS_ITS | Clinical Summary ---
Author Organization [facility] Address [address] [place] [address] Care Team Providers Care Hydroelectric Machinery Mechanic Name Role Phone Unavailable Primary Care Provider Unavailabl e Source Comments Patient records contain information from all sites at [facility]. For routine questions regarding patient records, call [phone] during business hours, M-F 8:00 AM - 5:00 PM Central Time. Record requests for emergency care only can be directed to [phone] at any time.[facility] Allergies No known active allergies Medications allopurinol (ZYLOPRIM) 100 mg tablet Take 100 mg by mouth daily. 11/10/2017 Active amLODIPine (NORVASC) 5 mg tablet Take 5 mg by mouth daily. Active levothyroxine (SYNTHROID, LEVOTHROID) 125 mcg tablet Take 0.125 tablets by mouth daily. 2 03/11/[address] tablet Take 81 mg by mouth daily. Active cholecalciferol (VITAMIN D3) 50 mcg (2,000 Unit) tablet Take 2,000 Units by mouth daily. Active carvediloL (COREG) 12.5 mg tablet Take 12.5 mg by mouth 2 (two) times a day. 03/08/2022 Active losartan (COZAAR) 100 mg tablet Take 100 mg by mouth daily. 03/08/2022 Active MECOBALAMIN, VITAMIN B12, ORAL Take 1,000 mcg by mouth daily. 10/31/2022 Active DME CPAPIndications: Apnea Sleep Obstructive DME Order 1 each 11 03/26/2023 Active rosuvastatin 20 mg capsule, sprinkle 03/31/2023 Active Active Problems Problem Noted Date Diagnosed Date Apnea Sleep Obstructive 04/05/2022 Encounters Date Type Department Care Team Description 04/21/2024 8:45 AM CDT Office Visit Department of Sleep Medicine in [place], [place] [address] [place] [phone] Eri Perez APRN, C.N.P., D.N.P., M.S.N. Apnea Sleep Obstructive (Primary Dx) from Last 3 Months Social History Tobacco Use Types Packs/Day Years Used Date Smoking Tobacco: Never Smokeless Tobacco: Never Tobacco Cessation:Counseling Given: Not Answered [facility] Utilities Answer Date Recorded In the past 12 months has e electric, gas, oil, or water company threatened to shut off services in your home? No 04/15/2024 Overall Financial Resource Strain (CARDIA) Answe r Date Recorded How hard is it for you to pa y for the very basics like food, housing, medical care, and heating? Not hard at all 03/22/2023 Exercise Vital Sign Answer Date Recorde d On average, how many days pe r week do you engage in moderate to strenuous exercise (like a brisk walk)? 6 days 04/15/2024 On average, how many minutes do you engage in exercise at this level? 60 min 04/15/2024 Hunger Vital Sign Answer Date Recorded Within the past 12 months, y ou worried that your food would run out before you got the money to buy more. Never true 04/15/20 24 Within the past 12 months, t he food you bought just didn't last and you didn't have money to get more. Never true 04/15/2024 PRAPARE - Transportation Answer Date Re corded In the past 12 months, has l ack of transportation kept you from medical appointments or from getting medications? No 02/2024 In the past 12 months, has l ack of transportation kept you from meetings, work, or from getting things needed for daily living? No 04/15/2024 Nutrition Answer Date Recorded On average, how many serving s of fruits and vegetables do you eat per day (serving size is equal to 1 cup or approximately the size of a tennis ball)? 3-5 04/15/2024 Dental Answer Date Recorded Dental: Regular Dentist Yes 09/14/20 23 Employment Answer Date Recorded Employment status Retired 04/15/2024 Housing Stability Answer Date Recorded What is your living situation today? I have a [facility] place to live 04/15/2024 Sex and Gender Information Value Date Recorded Sex Assigned at Male 03/22/2023 7:31 AM CDT Legal Sex Male 9:13 AM CDT Gender Identity Male 03/22/2023 7:31 AM CDT Sexual Orientation Lesbian or Alexander 03/22/2023 7: 31 AM CDT Last Filed Vital Signs Vital Sign Reading Time Taken Comments Blood Pressure 139/82 04/21/2024 8:39 AM CDT Pulse 50 04/21/2024 8:39 AM CDT Temperature 36.5 C (97.7 F) 04/21/2024 8:39 AM CDT Respiratory Rate - - Oxygen Saturation 96% 03/31/2020 8:19 AM CDT room air Inhaled Oxygen Concentration - - Weight 93.7 kg (206 lb 9.1 oz) 04/21/2024 8:39 A M CDT Height 177.5 cm (5' 9.88) 03/27/2019 2:28 PM CD T Body Mass Index 29.74 03/27/2019 2:28 PM CDT Plan of Treatment Health Maintenance Due Date Last Done Comments CT Colonography 1954 Cologuard 1955 Colonoscopy 1954 Colorectal Cancer Screening 1954 FIT 1954 Hepatitis C Screening 1955 Thyroid Stimulating Hormone (TSH) test for thyroid function 08/05/2022 08/05/2021 Depression Screening (Annual PHQ-2) 07/09/2023 Fall Risk Screen (Annual) 07/09/2023 Creatinine Level (Kidney Function Test) 03/05/2024 03/05/2023, 02/20/2022, 01/20/2022, Additional history exists Potassium Level 03/05/2024 03/05/2023, 02/06, 01/20/2022, Additional history exists Sodium Level 03/05/2024 03/05/2023, 02/06, 01/20/2022, Additional history exists COVID-19 Vaccine ( season) 2024 10/27/2022, 03/29/2022, 10/19/2021, Additional history exists Fasting Glucose for Diabetes Screening 03/05/2026 03/05/2023, 02/20/2022, 01/20/2022, Additional history exists DTaP,Tdap,and Td Vaccines (2 - Td or Tdap) 03/13/2027 03/13/2017 Pneumococcal vaccine (65+ years) Completed 03/24/2021, 02/06/2020 Zoster Vaccines Completed 08/25/2022, 05/18/2022 Influenza Vaccine Completed 03/14/2024, , 03/29/2022, Additional history exists IPV Vaccines Aged Out No longer eligi ble based on patient's age to complete this topic Insurance [address] [place] [phone] [employer]
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
--- OUTSIDE RECORDS SUMMARY | 2024-05-27 07:03 | XMS_ITS | Referral Summary ---
Author Organization [facility] Address [address] [place] [address] Care Team Providers Care Agriculture Consultant Name Role Phone Unavailable Primary Care Provider Unavailabl e Source Comments Patient records contain information from all sites at [facility]. For routine questions regarding patient records, call [phone] during business hours, M-F 8:00 AM - 5:00 PM Central Time. Record requests for emergency care only can be directed to [phone] at any time.[facility] Encounters Date Type Department Care Team Description 04/21/2024 8:45 AM CDT Office Visit Department of Sleep Medicine in [place], [place] [address], [place] [phone] Eri Perez APRN, C.N.P., D.N.P., M.S.N. Apnea Sleep Obstructive (Primary Dx) from Last 3 Months Allergies No known active allergies Medications allopurinol [...] Tobacco: Never Tobacco Cessation:Counseling Given: Not Answered [facility] Utilities Answer Date Recorded In the past 12 months has [employer] e electric, gas, oil, or water company [...] money to buy more. Never true 04/15/20 Within the past 12 months, t he [...] your living situation today? I have a [facility] place to live 04/15/2024 Sex and [...] CDT Plan of Treatment Not on file Insurance A[employer] Member Subscriber Plan / Payer (Ef fective 2022-Present) Name:Casey Sheffield Relation to Subscriber:Spouse Name:LILY PEREZ Date of :1900 Address: [address] [place] [address] [place] [id number] Payer ID:[id number] (NAIC) Type:POS
--- NOTE | 2024-05-27 07:15 | CRLHL7_ITS ---
For Patients: As a result of the Century Cures Act, medical imaging exams and procedure reports are released immediately into your electronic medical record. You may view this report before your referring provider. If you have questions, please contact your health care provider. CLINICAL HISTORY: Nonalcoholic steatohepatitis. COMPARISON: CT 07/24/2022 TECHNIQUE: Real time barnes scale imaging and color Doppler analysis was performed of the right upper quadrant. FINDINGS: Sonographic imaging demonstrates normal size and diffusely increased echotexture of the liver. Main portal vein is patent with antegrade flow. The pancreas appears heterogeneous. The proximal abdominal aorta and IVC appear normal. There is no evidence of ascites. The gallbladder is of normal size and there is an echogenic layering focus within the gallbladder measuring 4 millimeters. The gallbladder wall measures 1.2 mm in thickness. The common bile duct measures 5 mm in size within the joanna hepatis. Simple cyst right kidney measures 8 x 7 x 8 millimeters. The right kidney measures 11.7 cm in length. No hydronephrosis. IMPRESSION: Diffuse hepatic steatosis, similar to the prior study. 4 millimeter adherent stone within the gallbladder versus polyp. No biliary obstruction. Dictated by Royce Frazier MD @ 05/27/2024 10:37:35 AM (Electronically Signed)
== END 2024-05-27 07:01 | disposition home or self-care (01) ==
LOC: US 07:01
PROVIDERS: PCP Family Medicine; Visit Provider Family Medicine
DX: K75.81 Nonalcoholic steatohepatitis (NASH) (principal); K76.0 Fatty (change of) liver, not elsewhere classified
CPT/HCPCS: 76705

== ENCOUNTER 2024-09-11 13:34 | Outpatient (CLI) | payer OTHER, SELFPAY | END 2024-09-11 13:35 | disposition home or self-care (01) | LOC: LKVREF 13:38 | PROVIDERS: PCP Family Medicine; Visit Provider Family Medicine | DX: M25.541 Pain in joints of right hand (principal); M25.542 Pain in joints of left hand | CPT/HCPCS: 86431 ==

== ENCOUNTER 2024-12-09 07:30 | Outpatient (RCR) | payer OTHER, SELFPAY ==
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
== END 2025-04-08 23:59 | disposition home or self-care (01) ==
PROVIDERS: PCP Family Medicine; Visit Provider Family Medicine
DX: M79.641 Pain in right hand (principal); M79.642 Pain in left hand; Z51.89 Encounter for other specified aftercare
CPT/HCPCS: 97033; 97035; 97140; 97165

== ENCOUNTER 2025-04-17 09:04 | Outpatient (CLI) | payer OTHER, SELFPAY | END 2025-04-17 09:05 | disposition home or self-care (01) | PROVIDERS: PCP Family Medicine; Visit Provider Family Medicine | DX: E80.6 Other disorders of bilirubin metabolism (principal); E03.9 Hypothyroidism, unspecified; E78.00 Pure hypercholesterolemia, unspecified; I10 Essential (primary) hypertension; M10.9 Gout, unspecified; R73.03 Prediabetes; Z00.00 Encounter for general adult medical examination without abnormal findings | CPT/HCPCS: 80053; 80061; 82248; 84443; 84550; G0103 ==